=== PATIENT | female | born 1950 | race Caucasian/White ===

== ENCOUNTER 2019-04-14 12:15 | Inpatient (IN) | payer OTHER ==
[~2019-04-14] VITALS: Ht 167.6 cm; Wt 80.7 kg
[2019-04-14] MEDS ORDERED: METFORMIN HCL500 MG PO (12:20)
[2019-04-14] MEDS ORDERED: ZANTAC300 MG PO (12:21)
[2019-04-14] MEDS ORDERED: PROTONIX40 MG PO (12:21)
[2019-04-14] MEDS ORDERED: ZOCOR20 MG PO (12:21)
[2019-04-14] MEDS ORDERED: VASOTEC5 MG PO (12:21)
== END 2019-05-03 14:41 | disposition home or self-care (01) | DRG 330 ==
LOC: RECOVERY 04-20 12:15 → SURG 04-27 09:49 → O/R 04-27 09:49 → SURG 04-27 18:52
PROVIDERS: ADMIT Colon & Rectal Surgery
PROC: 0DBF4ZZ Excision of Right Large Intestine, Percutaneous Endoscopic Approach (ICD-10-PCS; 2019-04-27)
PROC: 0DBH4ZZ Excision of Cecum, Percutaneous Endoscopic Approach (ICD-10-PCS; 2019-04-27)
PROC: 0DBB4ZZ Excision of Ileum, Percutaneous Endoscopic Approach (ICD-10-PCS; 2019-04-27)
PROC: 0DTJ4ZZ Resection of Appendix, Percutaneous Endoscopic Approach (ICD-10-PCS; 2019-04-27)
PROC: 07TD4ZZ Resection of Aortic Lymphatic, Percutaneous Endoscopic Approach (ICD-10-PCS; 2019-04-27)
PROC: BW21Y0Z Computerized Tomography (CT Scan) of Abdomen and Pelvis using Other Contrast, Unenhanced and Enhanced (ICD-10-PCS; 2019-04-27)
PROC: 0DBK4ZZ Excision of Ascending Colon, Percutaneous Endoscopic Approach (ICD-10-PCS; principal; 2019-04-27 07:00)
DX: C18.0 Malignant neoplasm of cecum (principal); K35.890 Other acute appendicitis without perforation or gangrene; C18.2 Malignant neoplasm of ascending colon; J95.89 Other postprocedural complications and disorders of respiratory system, not elsewhere classified; J98.11 Atelectasis; R59.0 Localized enlarged lymph nodes; K63.89 Other specified diseases of intestine; E11.9 Type 2 diabetes mellitus without complications; Z79.4 Long term (current) use of insulin; I10 Essential (primary) hypertension